=== PATIENT | female | born 1975 | race Two or more races ===

== ENCOUNTER → 2023-12-25 19:31 | Outpatient (REF) | payer OTHER, SELFPAY | LOC: WDC 19:31 | PROVIDERS: ATTENDING PHYSICIAN Nurse Practitioner Family | DX: Z12.31 Encounter for screening mammogram for malignant neoplasm of breast (principal) | CPT/HCPCS: 77063; 77067 ==

== ENCOUNTER → 2024-03-10 10:15 | Outpatient (REF) | payer OTHER, SELFPAY | LOC: WDC 10:15 | PROVIDERS: ATTENDING PHYSICIAN Nurse Practitioner Family | DX: R92.8 Other abnormal and inconclusive findings on diagnostic imaging of breast (principal) | CPT/HCPCS: 76642 ==

== ENCOUNTER → 2024-03-31 07:08 | Outpatient (REF) | payer OTHER, SELFPAY | LOC: HWRCS 07:08 | PROVIDERS: ATTENDING PHYSICIAN Internal Medicine Cardiovascular Disease; FAMILY PHYSICIAN Nurse Practitioner Family | DX: R00.2 Palpitations (principal) | CPT/HCPCS: 93306 ==

== ENCOUNTER 2024-05-22 06:26 | Day surgery (SDC) | payer OTHER, SELFPAY | END 2024-05-22 16:00 | disposition home or self-care (01) | LOC: GI 06:26 | PROVIDERS: ATTENDING PHYSICIAN Internal Medicine Gastroenterology | DX: Z12.11 Encounter for screening for malignant neoplasm of colon (principal); K64.0 First degree hemorrhoids; K63.5 Polyp of colon | CPT/HCPCS: 45380; 88305 ==

== ENCOUNTER → 2024-11-14 09:45 | Outpatient (REF) | payer OTHER, SELFPAY | LOC: RAD 09:45 | PROVIDERS: ATTENDING PHYSICIAN Otolaryngology; FAMILY PHYSICIAN Nurse Practitioner Family | DX: D10.5 Benign neoplasm of other parts of oropharynx (principal) | CPT/HCPCS: 70492; Q9967 ==

== ENCOUNTER 2025-01-20 08:00 | Outpatient (RCR) | payer OTHER, SELFPAY | END 2025-01-20 09:47 | disposition home or self-care (01) | LOC: RPT 08:00 | PROVIDERS: ATTENDING PHYSICIAN Otolaryngology; FAMILY PHYSICIAN Family Medicine | DX: C09.9 Malignant neoplasm of tonsil, unspecified (principal); R29.898 Other symptoms and signs involving the musculoskeletal system; Z73.6 Limitation of activities due to disability; M25.512 Pain in left shoulder; M62.81 Muscle weakness (generalized); M43.6 Torticollis | CPT/HCPCS: 97110; 97112; 97140; 97162 ==

== ENCOUNTER 2025-01-20 16:01 | Outpatient (RCR) | payer OTHER, SELFPAY | END 2025-01-20 23:59 | disposition home or self-care (01) | LOC: RST 16:01 | PROVIDERS: ATTENDING PHYSICIAN Otolaryngology; FAMILY PHYSICIAN Family Medicine | DX: C09.9 Malignant neoplasm of tonsil, unspecified (principal); R29.898 Other symptoms and signs involving the musculoskeletal system; Z73.6 Limitation of activities due to disability | CPT/HCPCS: 92524 ==

== ENCOUNTER 2025-02-20 06:54 | Outpatient (RCR) | payer OTHER, SELFPAY | END 2025-02-20 23:59 | disposition home or self-care (01) | LOC: RPT 06:54 | PROVIDERS: ATTENDING PHYSICIAN Otolaryngology; FAMILY PHYSICIAN Family Medicine | DX: C09.9 Malignant neoplasm of tonsil, unspecified (principal); R29.898 Other symptoms and signs involving the musculoskeletal system; Z73.6 Limitation of activities due to disability; M25.512 Pain in left shoulder; M62.81 Muscle weakness (generalized); M43.6 Torticollis | CPT/HCPCS: 97110; 97112; 97140 ==

== ENCOUNTER 2025-02-20 08:38 | Outpatient (RCR) | payer OTHER, SELFPAY | END 2025-02-20 18:00 | disposition home or self-care (01) | LOC: RST 08:38 | PROVIDERS: ATTENDING PHYSICIAN Otolaryngology; FAMILY PHYSICIAN Family Medicine | DX: C09.9 Malignant neoplasm of tonsil, unspecified (principal); R29.898 Other symptoms and signs involving the musculoskeletal system; C10.9 Malignant neoplasm of oropharynx, unspecified; Z73.6 Limitation of activities due to disability; R49.0 Dysphonia | CPT/HCPCS: 92507 ==

== ENCOUNTER → 2025-03-10 10:55 | Outpatient (REF) | payer OTHER, SELFPAY | LOC: RAD 10:55 | PROVIDERS: ATTENDING PHYSICIAN Otolaryngology; FAMILY PHYSICIAN Family Medicine | DX: C09.9 Malignant neoplasm of tonsil, unspecified (principal) | CPT/HCPCS: 70491; Q9967 ==

== ENCOUNTER 2025-03-11 16:10 | Outpatient (RCR) | payer OTHER, SELFPAY | END 2025-03-11 23:59 | disposition home or self-care (01) | LOC: RPT 16:10 | PROVIDERS: ATTENDING PHYSICIAN Otolaryngology; FAMILY PHYSICIAN Family Medicine | DX: C09.9 Malignant neoplasm of tonsil, unspecified (principal); R29.898 Other symptoms and signs involving the musculoskeletal system; Z73.6 Limitation of activities due to disability; M25.512 Pain in left shoulder; M62.81 Muscle weakness (generalized); M43.6 Torticollis | CPT/HCPCS: 97014; 97110; 97112; 97140 ==

== ENCOUNTER 2025-03-13 10:17 | Outpatient (RCR) | payer OTHER, SELFPAY | END 2025-03-13 23:59 | disposition home or self-care (01) | LOC: RST 10:17 | PROVIDERS: ATTENDING PHYSICIAN Otolaryngology; FAMILY PHYSICIAN Family Medicine | DX: C09.9 Malignant neoplasm of tonsil, unspecified (principal); R29.898 Other symptoms and signs involving the musculoskeletal system; C10.9 Malignant neoplasm of oropharynx, unspecified; Z73.6 Limitation of activities due to disability; R49.0 Dysphonia; M25.512 Pain in left shoulder; M62.81 Muscle weakness (generalized) | CPT/HCPCS: 92507 ==

== ENCOUNTER 2025-04-09 14:00 | Outpatient (RCR) | payer OTHER, SELFPAY | END 2025-04-09 23:59 | disposition home or self-care (01) | LOC: RPT 14:00 | PROVIDERS: ATTENDING PHYSICIAN Otolaryngology; FAMILY PHYSICIAN Family Medicine | DX: C09.9 Malignant neoplasm of tonsil, unspecified (principal); R29.898 Other symptoms and signs involving the musculoskeletal system; Z73.6 Limitation of activities due to disability; M25.512 Pain in left shoulder; M62.81 Muscle weakness (generalized); M43.6 Torticollis | CPT/HCPCS: 97014; 97110; 97112; 97140 ==

== ENCOUNTER 2025-04-13 12:40 | Outpatient (RCR) | payer OTHER, SELFPAY | END 2025-04-13 23:59 | disposition home or self-care (01) | LOC: RST 12:40 | PROVIDERS: ATTENDING PHYSICIAN Otolaryngology; FAMILY PHYSICIAN Family Medicine | DX: C09.9 Malignant neoplasm of tonsil, unspecified (principal); R29.898 Other symptoms and signs involving the musculoskeletal system; C10.9 Malignant neoplasm of oropharynx, unspecified; Z73.6 Limitation of activities due to disability; R49.0 Dysphonia; M25.512 Pain in left shoulder; M62.81 Muscle weakness (generalized) | CPT/HCPCS: 92507 ==